=== PATIENT | male | born 1955 | race Caucasian/White ===

== ENCOUNTER 2019-10-18 13:24 | Emergency (ER) | payer SELFPAY ==
[~2019-10-18] VITALS: Ht 175.3 cm; Wt 90.7 kg
[2019-10-18] MEDS ORDERED: LACTULOSE10 GM/15 M PO (17:59)
[2019-10-18] MEDS ORDERED: LASIX20 MG PO (17:59)
[2019-10-18] MEDS ORDERED: K-TAB10 MEQ PO (17:59)
--- NOTE | 2019-10-19 13:12 | EKG ---
[facility] [address] [facility] [place] [address] Signed Sinus rhythm with occasional premature ventricular complexes Prolonged QT Abnormal ECG No previous ECGs available Confirmed by ROBINSON ALEXANDER MD ([id number]) on 10/19/2019 1:11:57 PM Electronically Signed By: ROBINSON ALEXANDER MD 10/19/19 1312 PATIENT NAME: UMA STAHL Electrocardiogram DATE OF : 55 PHYSICIAN: ROBINSON ALEXANDER MD REPORT #: [id number] REPORT IS CONFIDENTIAL AND NOT TO BE RELEASED WITHOUT AUTHORIZATION
== END 2019-10-18 18:20 | disposition home or self-care (01) ==
LOC: ED 13:24
DX: C22.8 Malignant neoplasm of liver, primary, unspecified as to type (principal); Z87.891 Personal history of nicotine dependence
CPT/HCPCS: 71260; 74177; 80053; 81001; 83690; 83880; 84484; 85025; 85610; 85730; 99284-25; J2405; J7040; Q9967

== ENCOUNTER 2019-11-26 14:15 | Emergency (ER) | payer OTHER ==
[~2019-11-26] VITALS: Ht 175.3 cm; Wt 90.7 kg
[~2019-11-26 14:15] MED LIST: K-TAB10 MEQ PO; LACTULOSE10 GM/15 M PO; LASIX20 MG PO
--- NOTE | 2019-11-27 00:03 | EKG ---
[facility] [address] [facility] [place] [address] Signed Normal sinus rhythm Possible Inferior infarct , age undetermined Abnormal ECG Confirmed by ESTHER SINGH MD ([id number]) on 11/27/2019 12:03:15 AM Electronically Signed By: ESTHER SINGH MD 11/27/19 0003 PATIENT NAME: UMA STAHL Electrocardiogram DATE OF : 55 PHYSICIAN: ESTHER SINGH MD REPORT #: [id number] REPORT IS CONFIDENTIAL AND NOT TO BE RELEASED WITHOUT AUTHORIZATION
== END 2019-11-26 21:21 | disposition short-term general hospital (02) ==
LOC: ED 14:15
DX: R18.8 Other ascites (principal); R17 Unspecified jaundice; I95.9 Hypotension, unspecified; R79.89 Other specified abnormal findings of blood chemistry; Z87.891 Personal history of nicotine dependence; Z79.899 Other long term (current) drug therapy
CPT/HCPCS: 49083; 71045; 74176; 80053; 81001; 82040; 82140; 82945; 83615; 83690; 83735; 84484; 85025; 85610; 89051; 93005; 93010; 94644; 99285-25; P9047